=== PATIENT | female | born 1990 | race Two or more races ===

== ENCOUNTER 2020-09-29 21:12 | Emergency (ER) | payer SELFPAY ==
[~2020-09-29] VITALS: Ht 167.6 cm; Wt 68.0 kg
--- NOTE | 2020-09-29 21:36 | NUR ---
ERMD at bedside for MSE.
--- NOTE | 2020-09-29 21:40 | NUR ---
Esteban WHITE chaperoned MD during breast exam.
[2020-09-29] MEDS ORDERED: CEphaleXIN 500 MG CAPSULE PO ONE (21:45)
[2020-09-29] MEDS ORDERED: CEphaleXIN 500 MG CAPSULE ONE (21:51)
--- NOTE | 2020-09-29 21:51 | NUR ---
Patient discharged to home in stable condition. Written and verbal after care instructions given. Patient verbalizes understanding of instructions. Stressed follow up or return to ER for worsening s/s. Patient ambulated with stable gait. All belongings given to patient.
[2020-09-29 21:52] VITALS: BP 128/83
== END 2020-09-29 21:52 | disposition home or self-care (01) ==
LOC: ER 21:15
DX: N61.0 Mastitis without abscess (principal); J45.909 Unspecified asthma, uncomplicated
CPT/HCPCS: A4663